=== PATIENT | male | born 2000 | race Two or more races ===

== ENCOUNTER 2022-02-28 01:55 | Emergency (ER) | payer OTHER ==
[~2022-02-28] VITALS: Ht 170.2 cm; Wt 87.1 kg
[2022-02-28 02:02] VITALS: BP 134/75
--- NOTE | 2022-02-28 02:07 | NUR ---
PT AMB TO ER BED 03.
[2022-02-28] MEDS ORDERED: ALBUTEROL SULFATE/IPRATROPIU 3 ML SOL IH ONE (02:15)
[2022-02-28] MEDS ORDERED: ALBUTEROL 0.083% 2.5 MG/3 ML NEBU INH ONE (02:15)
[2022-02-28] MEDS ORDERED: predniSONE 20 MG TAB PO ONE (02:15)
[2022-02-28] MEDS ORDERED: IBUP-2213 PO (02:34)
[2022-02-28] MEDS ORDERED: PRED20TA5 PO (02:34)
--- NOTE | 2022-02-28 02:40 | NUR ---
Patient lying in bed, A/Ox4, chest rise and fall symmetrical, no c/o pain or s/s of distress.
[2022-02-28 02:51] VITALS: BP 122/84
== END 2022-02-28 02:53 | disposition home or self-care (01) ==
LOC: MED 01:55
DX: J45.901 Unspecified asthma with (acute) exacerbation (principal); K21.9 Gastro-esophageal reflux disease without esophagitis; F17.200 Nicotine dependence, unspecified, uncomplicated
CPT/HCPCS: 94640; 99283; J7512; J7613

== ENCOUNTER 2022-07-02 01:10 | Emergency (ER) | payer OTHER ==
[~2022-07-02] VITALS: Ht 170.2 cm; Wt 105.2 kg
[~2022-07-02 01:10] MED LIST: IBUP-2213 PO; PRED20TA5 PO
[2022-07-02 01:29] VITALS: BP 133/77
--- NOTE | 2022-07-02 03:03 | NUR ---
PT TAKEN TO BED 5
--- NOTE | 2022-07-02 03:06 | NUR ---
RECEIVED IN BED 5 WITH C/O rectal bleeding x 3 days. Patient reported, had rectal bleeding for 3 days. PMHx: GERD
--- NOTE | 2022-07-02 03:28 | NUR ---
Dr. Trevizo examining patient.
[2022-07-02] MEDS ORDERED: HYD1C TP (03:55)
[2022-07-02] MEDS ORDERED: DOCU-299 PO (03:55)
[2022-07-02] MEDS ORDERED: MIRABULK PO (03:55)
[2022-07-02 04:05] VITALS: BP 133/77
--- NOTE | 2022-07-02 04:05 | NUR ---
Patient discharged with v/s stable. Written and verbal after care instructions given and explained. Patient alert, oriented and verbalized understanding of instructions. Ambulatory with steady gait. All questions addressed prior to discharge. ID band removed. Patient advised to follow up with PMD. Rx of COLACE, HYDROCORTISONE, MIRALAX given. Patient educated on indication of medication including possible reaction and side effects. Opportunity to ask questions provided and answered.
== END 2022-07-02 04:05 | disposition home or self-care (01) ==
LOC: MED 01:10
DX: K59.00 Constipation, unspecified (principal); K92.1 Melena; J45.909 Unspecified asthma, uncomplicated; K21.9 Gastro-esophageal reflux disease without esophagitis; Z79.899 Other long term (current) drug therapy
CPT/HCPCS: 99282

== ENCOUNTER 2022-07-22 11:20 | Emergency (ER) | payer OTHER ==
[~2022-07-22] VITALS: Ht 170.2 cm; Wt 103.4 kg
[~2022-07-22 11:20] MED LIST changes: +DOCU-299 PO; +HYD1C TP; +MIRABULK PO
[2022-07-22 11:27] VITALS: BP 133/86
[2022-07-22] MEDS ORDERED: ALBUTEROL SULFATE/IPRATROPIU 3 ML SOL IH ONE (13:40)
[2022-07-22] MEDS ORDERED: predniSONE 20 MG TAB PO ONE (13:40)
[2022-07-22] MEDS ORDERED: PRED20TA5 PO (14:00)
[2022-07-22] MEDS ORDERED: ALBU0.0912 INH (14:00)
[2022-07-22 14:07] VITALS: BP 114/62
--- NOTE | 2022-07-22 14:09 | NUR ---
pt states out inhaler mild exp wheeze, pt given rx tx feels a "1000" better aci asthma given rx prednisone and albuterol explained questions answered steady gait home.
== END 2022-07-22 14:07 | disposition home or self-care (01) ==
LOC: MED 11:20
DX: J45.901 Unspecified asthma with (acute) exacerbation (principal); I10 Essential (primary) hypertension; K21.9 Gastro-esophageal reflux disease without esophagitis; Z79.899 Other long term (current) drug therapy
CPT/HCPCS: 94640; 99283; J7512

== ENCOUNTER 2023-01-22 10:28 | Emergency (ER) | payer OTHER ==
[~2023-01-22] VITALS: Ht 172.7 cm; Wt 98.9 kg
[~2023-01-22 10:28] MED LIST changes: +ALBU0.0912 INH
[2023-01-22 10:39] VITALS: BP 139/92; PULSE 74; RESP 20; TEMP 97.8; O2SAT 100
[2023-01-22] MEDS ORDERED: MUC600 PO (11:42)
[2023-01-22] MEDS ORDERED: PRED20TA5 PO (11:42)
[2023-01-22 13:25] LABS: FLU A ANTIGEN negative (NEGATIVE); FLU B ANTIGEN negative (NEGATIVE)
== END 2023-01-22 12:20 | disposition home or self-care (01) ==
LOC: MED 10:28
DX: J45.901 Unspecified asthma with (acute) exacerbation (principal); J06.9 Acute upper respiratory infection, unspecified; Z20.822 Contact with and (suspected) exposure to COVID-19; K21.9 Gastro-esophageal reflux disease without esophagitis; Z79.899 Other long term (current) drug therapy; Z79.1 Long term (current) use of non-steroidal anti-inflammatories (NSAID)
CPT/HCPCS: 99283